=== PATIENT | male | born 1970 | race Hispanic/Latino ===

== ENCOUNTER 2018-08-12 17:44 | Emergency (ER) | payer MEDICAID ==
[2018-08-12 18:05] VITALS: TEMP 99; O2SAT 98
[2018-08-12] MEDS ORDERED: Bacitracin 500 Units/gm Oint Foilpak UD TOP STA (18:36)
--- NOTE | 2018-08-12 18:37 | ED PDOC ---
Upper Extremity Pain/Injury Time Seen by Provider: 08/12/18 18:07 Chief Complaint (Nursing): Finger,Hand,&Wrist Chief Complaint (Provider): Finger,Hand,&Wrist History Per: Patient History/Exam Limitations: no limitations Onset/Duration Of Symptoms: Hrs Current Symptoms Are (Timing): Still Present Additional Complaint(s): Cristian Zamora is a 48 year old male with a past medical history of diabetes and hypertension who is presenting to the ED for evaluation of left second digit laceration onset around 1 pm while at work. Patient states that he accidentally cut his hand with glass from a window and cleaned the wound with rubbing alcohol and wrapped it in electrical tape. Patient denies taking any medications prior to arrival and denies loss of sensation, pain, or foreign body sensation. Of note, patient is right hand dominant. PMD: none provided Past Medical History Reviewed: Historical Data, Nursing Documentation, Vital Signs Vital Signs: Last Vital Signs Temp 99 F 08/12/18 18:01 Pulse 96 H 08/12/18 18:01 Resp 18 08/12/18 18:01 BP 161/92 H 08/12/18 18:01 Pulse Ox 98 08/12/18 18:01 - Medical History PMH: Diabetes (type II), HTN - Surgical History Surgical History: Cholecystectomy - Family History Family History: States: Unknown Family Hx - Home Medications Home Medications: Ambulatory Orders Medication Instructions Recorded Azithromycin 250 mg PO DAILY #4 tab 11/23/14 MetFORMIN [glucoPHAGE] 1,000 mg PO BID #30 tab 11/23/14 Naproxen [Naprosyn] 500 mg PO BID PRN #30 tab 10/17/16 Penicillin VK [Penicillin VK Tab] 500 mg PO Q6 #40 tab 10/17/16 Tramadol HCl [Ultram] 50 mg PO BID PRN #30 tablet 10/17/16 Bacitracin Ointment [Bacitracin] 1 applic TOP BID #1 tube 08/12/18 Cephalexin [cephalexin] 500 mg PO TID #21 cap 08/12/18 Naproxen 500 mg PO BID PRN #20 tab 08/12/18 - Allergies Allergies/Adverse Reactions: Allergies Allergy/AdvReac Type Severity Reaction Status Date / Time No Known Allergies Allergy Verified 08/12/18 18:06 Review of Systems ROS Statement: Except As Marked, All Systems Reviewed And Found Negative Musculoskeletal: Positive for: Hand Pain (laceration) Neurological: Negative for: Other (loss of sensation) Physical Exam - Reviewed Nursing Documentation Reviewed: Yes Vital Signs Reviewed: Yes - Physical Exam Comments: GENERAL APPEARANCE: Patient is awake, alert, oriented x 3, in no acute distress. Resting comfortably. SKIN: Warm, dry; (-) cyanosis. NEck: Supple, FROM CHEST AND RESPIRATORY: (-) rales, (-) rhonchi, (-) wheezes; breath sounds equal bilaterally. Respirations even and nonlabored. HEART AND CARDIOVASCULAR: (-) irregularity EXTREMITIES: (+)Dorsum of left second MCP: 1.5 cm curvilinear laceration with active bleeding, full ROM of digit with sensation intact (-) tendon involvement (-) FB visualized. Remainder of upper extremity non-tender. (-) deformity, (-) edema, (+) distal pulses. NEURO AND PSYCH: Mental status as above; (-) focal findings. Gait: steady. Speech: clear. (-) facial asymmetry (-) aphasia - ECG O2 Sat by Pulse Oximetry: 98 (RA) Pulse Ox Interpretation: Normal Medical Decision Making Medical Decision Making: Time: 18:10 Impression: finger/hand injury -Lidocaine INJ for laceration repair -Laceration repair -Keflex PO 1844 Laceration repair performed by Sabina ESCOBAR. See procedure note. Bacitracin and dressing applied. Patient educated on wound care. 1915 Patient with elevated BP reading in ED. Patient reports he used to be on medication for his HTN but has not been the past 4 years. Patient denies any complaints related to his elevated BP. Close follow up advised for repeat evaluation. DASH diet encouraged. On re-evaluation, patient reports improvement of symptoms. On exam, patient remains AAOx3, in no acute distress. Lungs clear to auscultation, cardiac RRR, repeat neuro exam shows no focal findings. Vitals stable. Lab/Diagnostic results d/w the patient in great detail. Diagnosis of finger laceration, elevated blood pressure reading d/w the patient. Based on history, exam and diagnostic results, plan will be for outpatient follow up. Patient instructed to follow-up with pmd / referral provided / the clinic in 1- 2 days without fail. Advised to take medication as prescribed. Return to the emergency room at any time for any new or worsening symptoms. Patient states he fully agrees with and understands discharge instructions. States that he agrees with the plan and disposition. Verbalized and repeated discharge instructions and plan. I have given the patient opportunity to ask any additional questions. Scribe Attestation: Documented by Shanice Patiño, acting as a scribe for Renetta Muhammad PA-C. Provider Scribe Attestation: All medical record entries made by the Scribe were at my direction and personally dictated by me. I have reviewed the chart and agree that the record accurately reflects my personal performance of the history, physical exam, medical decision making, and the department course for this patient. I have also personally directed, reviewed, and agree with the discharge instructions and disposition. Procedures - Laceration/Wound Repair Left 2nd Digit Wound Length (cm): 1.5 Wound's Depth, Shape: superficial (curvilinear) Wound Explored: clean Irrigated w/ Saline (ccs): 200 Betadine Prep?: No Anesthesia: 1% Lidocaine (2) Wound Debrided: minimal Wound Repaired With: Sutures Suture Size/Type: 5:0, proline Number of Sutures: 5 Layer Closure?: No Wound Complexity: Simple Sterile Dressing Applied?: Yes (bacitracin, telfa, and cling) Progress: Patient tolerated procedure well. No complications. Educated on wound care. Suture removal advised in 7 days. Disposition - Clinical Impression Clinical Impression: Finger laceration, Elevated blood pressure reading - Patient ED Disposition Is Patient to be Admitted: No Counseled Patient/Family Regarding: Studies Performed, Diagnosis, Need For Followup, Rx Given - Disposition Referrals: [facility] [Outside] Tiffanie Gant MD [Staff Provider] - Disposition: Routine/Home Disposition Time: 19:20 Condition: STABLE Additional Instructions: SUTURE REMOVAL IN 1 WEEK. KEEP WOUND CLEAN AND DRY. CLEAN TWICE DAILY WITH SOAP AND WATER. APPLY ANTIBIOTIC OINTMENT DIRECTED. MINIMIZING BENDING OF DIGIT. The emergency medical care you received today was directed at your acute symptoms. If you were prescribed any medication, please fill it and take as directed. It may take several days for your symptoms to resolve. Return to the Emergency Department if your symptoms worsen, do not improve, or if you have any other problems. Please contact your doctor in 2 days for re-evaluation and follow up / or call one of the physicians/clinics you have been referred to that are listed on the Patient Visit Information form that is included in your discharge packet. Bring any paperwork you were given at discharge with you along with any medications you are taking to your follow up visit. Our treatment cannot replace ongoing medical care by a primary care provider (PCP) outside of the emergency department. Prescriptions: Bacitracin Ointment [Bacitracin] 1 applic TOP BID #1 tube Cephalexin [cephalexin] 500 mg PO TID #21 cap Naproxen 500 mg PO BID PRN #20 tab PRN Reason: Pain, Moderate (4-7) Instructions: High Blood Pressure in Adults, DASH Diet, Laceration Repair With Stitches (DC), Common Finger Injuries (DC), Hypertension (ED) Forms: [employer] ([place]ican) Print Language: STATELESS - POA Present On Arrival: None
[2018-08-12] MEDS ORDERED: Bacitracin 500 Units/gm Oint Foilpak UD ONE (18:55)
[2018-08-12 19:14] VITALS: RESP 20
[2018-08-12 19:19] VITALS: BP 169/99; PULSE 97
== END 2018-08-12 19:34 | disposition home or self-care (01) ==
LOC: H.ER 17:44
DX: S61.211A Laceration without foreign body of left index finger without damage to nail, initial encounter (principal); W25.XXXA Contact with sharp glass, initial encounter; Y99.0 Civilian activity done for income or pay; E11.9 Type 2 diabetes mellitus without complications; Z79.84 Long term (current) use of oral hypoglycemic drugs; I10 Essential (primary) hypertension

== ENCOUNTER 2018-11-24 19:32 | Emergency (ER) | payer SELFPAY ==
--- NOTE | 2018-11-24 20:28 | ED PDOC ---
HPI: Dental Pain/Injury Time Seen by Provider: 11/24/18 20:14 Chief Complaint (Nursing): Dental Pain Chief Complaint (Provider): Dental Pain History Per: Patient History/Exam Limitations: no limitations Onset/Duration Of Symptoms: Days (x1) Current Symptoms Are (Timing): Still Present Additional Complaint(s): 48 year old male presents to the ED for evaluation of a right upper toothache worsening over the past day. Patient states the pain is worse with chewing, and was only minimally relieved by Ibuprofen, last dose 1400 today. He reports that he has not had dental work in years but is scheduled to have his molars removed next month. Denies fever and any other complaints. PMD: cannot recall Past Medical History Reviewed: Historical Data, Nursing Documentation, Vital Signs Vital Signs: Last Vital Signs Temp 98.7 F 11/24/18 20:07 Pulse 92 H 11/24/18 20:07 Resp 16 11/24/18 20:07 BP 162/98 H 11/24/18 20:07 Pulse Ox 98 11/24/18 20:07 - Medical History PMH: Diabetes (type II), HTN - Surgical History Surgical History: Cholecystectomy - Family History Family History: States: Unknown Family Hx - Home Medications Home Medications: Ambulatory Orders Medication Instructions Recorded RX: Azithromycin 250 mg PO DAILY #4 tab 11/23/14 RX: MetFORMIN [glucoPHAGE] 1,000 mg PO BID #30 tab 11/23/14 RX: Naproxen [Naprosyn] 500 mg PO BID PRN #30 tab 10/17/16 RX: Penicillin VK [Penicillin VK 500 mg PO Q6 #40 tab 10/17/16 Tab] Tramadol HCl [Ultram] 50 mg PO BID PRN #30 tablet 10/17/16 Cephalexin [cephalexin] 500 mg PO TID #21 cap 08/12/18 RX: Bacitracin Ointment 1 applic TOP BID #1 tube 08/12/18 [Bacitracin] RX: Naproxen 500 mg PO BID PRN #20 tab 08/12/18 Acetaminophen [Acetaminophen 8 650 mg PO Q8 PRN #21 tablet.er 11/24/18 Hour] Amoxicillin/Clavulanate [Augmentin 1 tab PO BID #14 tab 11/24/18 875 MG-125 MG] RX: Ibuprofen [Motrin Tab] 800 mg PO Q8 PRN #21 tab 11/24/18 - Allergies Allergies/Adverse Reactions: Allergies Allergy/AdvReac Type Severity Reaction Status Date / Time No Known Allergies Allergy Verified 11/24/18 20:07 Review of Systems ROS Statement: Except As Marked, All Systems Reviewed And Found Negative Constitutional: Negative for: Fever ENT: Positive for: Other (right upper tooth ache, worse with chewing) Physical Exam - Reviewed Nursing Documentation Reviewed: Yes Vital Signs Reviewed: Yes - Physical Exam Comments: GENERAL APPEARANCE: Patient is awake, alert, oriented x 3, in no acute distress. Resting comfortably on cell phone. SKIN: Warm, dry; (-) cyanosis. ENMT: (-) sinus swelling or tenderness. Poor dentition throughout with multiple caries and dental plaque; right upper posterior most molars with tenderness, rotting dentition, and mild surrounding gingival erythema (-) fluctuance; multiple cracked teeth noted. Pharynx: clear, uvula midline (-) erythema (-) exudate. Airway patent: (-) stridor. (-) Submandibular or submental neck swelling (-) pseudomembranes NECK: Supple, FROM CARDIOVASCULAR: regular rate and rhythm RESPIRATORY: lungs cleared to auscultation bilaterally - ECG O2 Sat by Pulse Oximetry: 98 (RA) Pulse Ox Interpretation: Normal Medical Decision Making Medical Decision Making: Initial Impression: dental pain, probable dental infection Time: 2019 Initial Plan: --Augmentin 1 tab PO --Toradol 30mg IM --Re-evaluation 2049 Repeat BP: 150/88 Repeat HR: 78 On re-evaluation, patient reports improvement of symptoms. On exam, patient remains AAOx3, in no acute distress. Vitals stable. Lab/Diagnostic results d/w the patient in great detail. Diagnosis of dental pain, probable dental infection d/w the patient. Based on history, exam and diagnostic results, plan will be for outpatient follow up with dental. Patient instructed to follow-up with pmd / referral provided / the clinic in 1- 2 days without fail. Advised to take medication as prescribed. Return to the emergency room at any time for any new or worsening symptoms. Patient states he fully agrees with and understands discharge instructions. States that he agrees with the plan and disposition. Verbalized and repeated discharge instructions and plan. I have given the patient opportunity to ask any additional questions. Scribe Attestation: Documented by Stephanie Melara, acting as a scribe for Renetta Muhammad PA-C. Provider Scribe Attestation: All medical record entries made by the Scribe were at my direction and personally dictated by me. I have reviewed the chart and agree that the record accurately reflects my personal performance of the history, physical exam, medical decision making, and the department course for this patient. I have also personally directed, reviewed, and agree with the discharge instructions and disposition. Disposition - Clinical Impression Clinical Impression: Pain, dental, Dental infection, Dental caries - Patient ED Disposition Is Patient to be Admitted: No Counseled Patient/Family Regarding: Studies Performed, Diagnosis, Need For Followup, Rx Given - Disposition Referrals: your, dentist [Other] Disposition: Routine/Home Disposition Time: 20:50 Condition: STABLE Additional Instructions: The emergency medical care you received today was directed at your acute symptoms. If you were prescribed any medication, please fill it and take as directed. It may take several days for your symptoms to resolve. Return to the Emergency Department if your symptoms worsen, do not improve, or if you have any other problems. Please contact your doctor in 2 days for re-evaluation and follow up / or call one of the physicians/clinics you have been referred to that are listed on the Patient Visit Information form that is included in your discharge packet. Bring any paperwork you were given at discharge with you along with any medications you are taking to your follow up visit. Our treatment cannot replace ongoing medical care by a primary care provider (PCP) outside of the emergency department. Prescriptions: Acetaminophen [Acetaminophen 8 Hour] 650 mg PO Q8 PRN #21 tablet.er PRN Reason: Pain, Moderate (4-7) Amoxicillin/Clavulanate [Augmentin 875 MG-125 MG] 1 tab PO BID #14 tab RX: Ibuprofen [Motrin Tab] 800 mg PO Q8 PRN #21 tab PRN Reason: Pain, Moderate (4-7) Instructions: Tooth Abscess (DC), Tooth Decay, Adult (DC), Dental Pain (DC) Forms: [facility] (Chilean) Print Language: NEPALESE - POA Present On Arrival: None
[2018-11-24] MEDS: Amoxicillin-Clav 875-125 mg Tab PO STA (20:45)
[2018-11-24] MEDS ORDERED: Amoxicillin-Clav 875-125 mg Tab PO ONE (20:45)
[2018-11-24 21:13] VITALS: BP 150/88; PULSE 78; RESP 18; TEMP 98
[2018-11-27 16:20] VITALS: O2SAT 98
== END 2018-11-24 21:12 | disposition home or self-care (01) ==
LOC: H.ER 19:32
DX: K02.9 Dental caries, unspecified (principal); K04.7 Periapical abscess without sinus; E11.9 Type 2 diabetes mellitus without complications; I10 Essential (primary) hypertension; Z79.84 Long term (current) use of oral hypoglycemic drugs
CPT/HCPCS: 96372; 99283; J1885